=== PATIENT | female | born 1960 | race Caucasian/White ===

== ENCOUNTER 2023-08-31 01:14 | Emergency (ER) | payer BC, SELFPAY ==
[2023-08-31] VITALS (11 sets, daily range): BP systolic 164–190; BP diastolic 52–64; PULSE 66–78; RESP 15–22; TEMP 36.9; O2SAT 83–99
--- NOTE | ~2023-08-31 | XR_ITS ---
EXAMINATION: XR chest 1V portable DATE: 08/31/2023 01:57 INDICATION: Dyspnea. Shortness of breath. Asthma. TECHNIQUE: A single frontal view of the chest was obtained. COMPARISON: None. FINDINGS: A calcified right lung nodule is consistent with old granulomatous disease. There is a diff use interstitial pattern in the lungs. No pleural effusion or pneumothorax. The heart size is normal. There is a left chest wall pacer with leads in the right atrium and right ventricle. IMPRESSION: 1. Diffuse interstitial pattern in the lungs, likely mild pulmonary edema. Reviewed, dictated and finalized at location E.
--- NOTE | 2023-08-31 01:20 | ECG_ITS ---
Measurements Intervals [place] Rate: 76 P: 58 MS: 170 QRS: 37 QRSD: 112 T: 257 QT: 388 QTc: 438 Interpretive Statements SINUS RHYTHM ANTEROSEPTAL MYOCARDIAL INFARCTION , OF INDETERMINATE AGE T-WAVE ABNORMALITY, CONSIDER ISCHEMIA Electronically Signed On 08-31-2023 12:59:08 CDT by Ibrahima Brenner M.D.
[2023-08-31] MEDS: methylPREDNISolone SOD SUCC 125 MG VIAL IV PUSH (01:34)
--- NOTE | 2023-08-31 01:41 | ED.GENADULT ---
HPI - General Adult General Chief complaint: Shortness of Breath/Dyspnea Stated complaint: sob History of Present Illness HPI narrative: Patient 63-year-old female who presents the emergency department with chief complaint of shortness of breath. Patient has history of COPD asthma CHF the patient is currently visiting from [place] and was in [place] recently and having to use her inhaler more frequently. Patient states tonight she started getting very short of breath and reports that she used her inhaler multiple times without relief when EMS arrived they found her to be hypoxic give her a breathing treatment and transported her to the emergency department. The patient states is not having any chest pain denies lower extremity edema Related Data Allergies Allergy/AdvReac Type Severity Reaction Status Date / Time No Known Allergies Allergy Verified 08/31/23 01:21 Review of Systems Review of Systems: A 10 system review of systems was completed on the patient and is negative except for what is stated in the HPI. Nursing and ancillary documentation was reviewed. Course Vital Signs Vital signs: Vital Signs Temperature 36.9 C 08/31/23 01:10 Pulse Rate 78 08/31/23 01:10 Respiratory Rate 22 H 08/31/23 01:10 Blood Pressure 190/64 H 08/31/23 01:10 Pulse Oximetry 83 L 08/31/23 01:10 Oxygen Delivery Room Air 08/31/23 01:10 Temperature 36.9 C 08/31/23 01:10 Pulse Rate 66 08/31/23 03:16 Respiratory Rate 20 08/31/23 03:16 Blood Pressure 166/55 H 08/31/23 02:22 Pulse Oximetry 92 08/31/23 03:16 Oxygen Delivery Room Air 08/31/23 03:06 Oxygen Flow Rate 2 08/31/23 02:41 Medical Decision Making [facility] Narrative Medical decision making narrative: Differential diagnosis includes pneumonia, COPD exacerbation, CHF exacerbation, pulmonary embolism, Patient was initially hypoxic on room air normally does not require oxygen. The patient received steroids and breathing treatments and is actually doing much better at this time initially the plan was to perform a CT pulmonary embolism study on her but the patient reports that she is feeling better at this time and does not wish to be evaluated for PE as she is feeling better. The patient will be started on steroids for home and she did continue doing her breathing treatments Vital Signs Vital Signs: Vital Signs Temperature 36.9 C 08/31/23 01:10 Pulse Rate 78 08/31/23 01:10 Respiratory Rate 22 H 08/31/23 01:10 Blood Pressure 190/64 H 08/31/23 01:10 Pulse Oximetry 83 L 08/31/23 01:10 Oxygen Delivery Room Air 08/31/23 01:10 Temperature 36.9 C 08/31/23 01:10 Pulse Rate 66 08/31/23 03:16 Respiratory Rate 20 08/31/23 03:16 Blood Pressure 166/55 H 08/31/23 02:22 Pulse Oximetry 92 08/31/23 03:16 Oxygen Delivery Room Air 08/31/23 03:06 Oxygen Flow Rate 2 08/31/23 02:41 Lab Data 08/31/23 01:33 08/31/23 01:33 Labs: Lab Results 08/31/23 08/31/23 Range/Units 01:33 02:36 WBC 8.1 (4.5-10.0) K/mm3 RBC 2.92 L (4.2-5.4) M/mm3 Hgb 10.6 L (12.0-15.0) g/dL Hct 28.9 L (37.0-47.0) % MCV 99.0 (80-100) fl MCH 36.3 H (26-34) pg MCHC 36.7 H (32-36) g/dl RDW 15.3 H (11.5-14.5) % Plt Count 302 (150-375) k/mm3 MPV 8.7 (7.4-10.4) fl Immature Gran % (Auto) 0.6 H (0-0.5) % Neut % (Auto) 82.3 H (45.5-73.1) % Lymph % (Auto) 10.8 L (18.3-44.2) % [place] % (Auto) 5.8 (2.6-8.5) % Eos % (Auto) 0.0 (0-4.4) % Baso % (Auto) 0.5 (0.2-1.2) % Lymph # (Auto) 0.87 L (0.9-3.2) K/mm3 [place] # (Auto) 0.5 (0.1-0.6) K/mm3 Eos # (Auto) 0.0 (0-0.3) K/mm3 Baso # (Auto) 0.0 (0.0-0.1) K/mm3 Abs Immat Gran (auto) 0.05 H (0.00-0.031) K/mm3 Absolute Neuts (auto) 6.7 (1.3-6.7) K/mm3 Absolute Nucleated RBC 0.0 (0.0-0.012) K/mm3 Nucleated RBC % 0.0 (0.0-0.2) % PT 13.5 (11.1-14.7) Seconds INR 1.0 APTT 26.3
[2023-08-31 01:53] LABS: Device NASAL CANNULA; Fractional Inspired Oxygen 36 %; HCO3 ABG 19.5 mEq/l (22.0-26.0); Modified Allen's Test Pass; Oxygen Content ABG 14.1 %vol (16.0-22.0); Oxygen Saturation ABG 91.6 % (95.0-100.0); Oxyhemoglobin 90.1 % THb (90.0-100.0); PCO2 ABG 34.1 mmHg (35.0-45.0); PO2 ABG 62.1 mmHg (80.0-100.0); PO2 FiO2 Ratio Arterial Blood 1.72 %; Site Drawn RIGHT RADIAL; Total Hemoglobin 11.1 g/dL (12.0-18.0); pH ABG 7.375 (7.350-7.450)
[2023-08-31] MEDS: ALBUTEROL SULFATE NEB 2.5 MG/3 ML INH INHALATION (01:55)
[2023-08-31] MEDS: IPRATROPIUM BR 0.02% INH SOLN 0.5 MG/2.5 ML VIAL INHALATION (01:55)
--- NOTE | 2023-08-31 02:00 | PC.NURSE ---
Called lab to inquire about blood work sent to lab. States they will run it now
[2023-08-31 02:04] LABS: Basophils Percent Auto 0.5 % (0.2-1.2); Hematocrit 28.9 % (37.0-47.0); Hemoglobin 10.6 g/dL (12.0-15.0); Immature Granulocyte Absolute 0.05 K/mm3 (0.00-0.031); Immature Granulocyte Percent A 0.6 % (0-0.5); Lymphocytes Absolute Auto 0.87 K/mm3 (0.9-3.2); Lymphocytes Percent Auto 10.8 % (18.3-44.2); Mean Corpuscular HGB Conc 36.7 g/dl (32-36); Mean Corpuscular Hemoglobin 36.3 pg (26-34); Mean Platelet Volume 8.7 fl (7.4-10.4); Monocytes Absolute Auto 0.5 K/mm3 (0.1-0.6); Monocytes Percent Auto 5.8 % (2.6-8.5); Neutrophils Absolute Auto 6.7 K/mm3 (1.3-6.7); Neutrophils Percent Auto 82.3 % (45.5-73.1); Platelet Count Result 302 k/mm3 (150-375); Red Blood Count 2.92 M/mm3 (4.2-5.4); Red Cell Distribution Width 15.3 % (11.5-14.5); White Blood Count 8.1 K/mm3 (4.5-10.0)
[2023-08-31 02:13] LABS: Prothrombin Time 13.5 Seconds (11.1-14.7)
[2023-08-31 02:15] LABS: Partial Thromboplastin Time 26.3 SECONDS (22.3-36.8)
[2023-08-31 02:19] LABS: Alanine Aminotransferase 19 U/L (6-35); Albumin Level 3.7 g/dL (3.5-5.1); Alkaline Phosphatase 55 U/L (38-126); Anion Gap 8 mmol/L (8-16); Aspartate Amino Transferase 32 U/L (14-36); Bilirubin,Total 0.5 mg/dL (0.2-1.3); Blood Urea Nitrogen 31 mg/dL (7-17); Calcium 8.2 mg/dL (8.4-10.2); Carbon Dioxide 19 mmol/L (22-30); Chloride 105 mmol/L (98-107); Estimated Glomerular Filt Rate 45; Glucose 422 mg/dL (65-110); Magnesium 2.3 mg/dL (1.6-2.3); Potassium 4.2 mmol/L (3.4-5.0); Sodium 132 mmol/L (137-145)
[2023-08-31 02:20] LABS: Lactic Acid Reflex 1.8 mmol/L (0.7-2.0)
[2023-08-31 02:31] LABS: NT Pro B Type Natriuretic Pept 1090 pg/mL (19.9-100); Troponin I 0.026 ng/mL (0.000-0.034)
[2023-08-31 02:37] LABS: Procalcitonin 0.1 ng/mL
[2023-08-31 02:44] LABS: Appearance Urine Clear (Clear); Bacteria Urine None Seen /hpf; Bilirubin Urine Negative (Negative); Blood Urine Trace (Negative); Color Urine Yellow (Yellow); Glucose Urine UA 3+ mg/dL (Negative); Ketones Urine Negative (Negative); Leukocyte Esterase Ur Negative LEU/UL (Negative); Nitrate Urine Negative (Negative); Non Pathogenic Casts 0-2; Protein Urine 3+ mg/dL (Negative); RBC Urine 0-2 /hpf (0-2); Specific Grav Ur 1.018 (1.001-1.035); Squamous Epithelial Cell Urine None seen /hpf (Few); Urobilinogen Urine 0.2 mg/dL (<2.0); WBC Urine 0-5 /hpf; pH Urine 5.5 (5.0-9.0)
[2023-08-31 02:58] LABS: Add Urine Microscopic? YES
--- NOTE | 2023-08-31 03:24 | PC.NURSE ---
Pt ambulated with pulse ox, saturations stayed above 92% during ambulation. EDP notified.
== END 2023-08-31 03:53 | disposition home or self-care (01) ==
PROVIDERS: Emergency Provider Emergency Medicine
DX: J45.901 Unspecified asthma with (acute) exacerbation (principal)
CPT/HCPCS: 36415; 36600; 71045; 80053; 81001; 82805; 83605; 83735; 83880; 84145; 84484; 85025; 85610; 85730; 93005; 94640; 96374; 99284; J2930